=== PATIENT | male | born 1985 | race Caucasian/White ===

== ENCOUNTER 2020-08-21 12:00 | Outpatient (CLI) | payer MEDICAID, OTHER ==
--- NOTE | 2020-08-21 13:13 | XRAY Report ---
PROCEDURE: Shoulder 3 View RT INDICATIONS: IMPINGEMENT SYNDROME OF R SHOULDER TECHNIQUE: 3 views of the shoulder were acquired. COMPARISON: None. FINDINGS: Bones: No fractures or dislocations. No suspicious bony lesions. Visualized ribs appear intact. Soft tissues: No suspicious soft tissue calcifications. IMPRESSION: Unremarkable examination as above. If the patient's pain or other symptoms persist, cons ider further evaluation with MRI. Reviewed by: Brock Cornejo MD on 08/21/2020 1:11 PM PST Approved by: Brock Cornejo MD on 08/21/2020 1:11 PM PST Station ID: [id number]
== END 2020-08-21 23:59 | disposition home or self-care (01) ==
LOC: DI.N 12:00
PROVIDERS: ATTEND Physician Assistant Medical
DX: M75.41 Impingement syndrome of right shoulder (principal)